=== PATIENT | male | born 1990 | race Caucasian/White ===

== ENCOUNTER 2023-12-15 01:59 | Emergency (ER) | payer OTHER ==
[~2023-12-15] VITALS: Ht 167.6 cm; Wt 81.6 kg
[2023-12-15 02:05] VITALS: BP 131/84; PULSE 98; RESP 16; TEMP 98.4; O2SAT 98
[2023-12-15 02:30] VITALS: BP 131/84; PULSE 98; RESP 16; TEMP 98.4; O2SAT 98
== END 2023-12-15 03:05 ==
LOC: MED 01:59
DX: F10.129 Alcohol abuse with intoxication, unspecified (principal); Y90.9 Presence of alcohol in blood, level not specified
CPT/HCPCS: 99283